=== PATIENT | male | born 1965 | race Caucasian/White ===

== ENCOUNTER → 2016-11-06 | Outpatient (CLI) | payer OTHER ==
[2016-11-06 12:28] LABS: CHLORIDE,CL 103 mmol/L (98-110); SODIUM,NA 142 mmol/L (136-146)
== END ==
LOC: MW.CHFP 11:27
PROVIDERS: ATTEND Physician Assistant
DX: I10 Essential (primary) hypertension (principal); R20.2 Paresthesia of skin; E11.9 Type 2 diabetes mellitus without complications
CPT/HCPCS: 36415; 80053; 80061; 83036; 85025; 85652; 93005

== ENCOUNTER 2021-07-20 16:56 | Emergency (ER) | payer SELFPAY ==
[2021-07-20] MEDS ORDERED: Sodium Chloride 0.9% 2.5 ML Syringe FLUSH PRN (17:04)
[2021-07-20] MEDS ORDERED: Sodium Chloride 0.9% 10 ML Syringe FLUSH PRN (17:04)
[2021-07-20] MEDS ORDERED: Sodium Chloride 0.9% 1,000 ML IV ONE ×2 (17:04→17:49)
[2021-07-20] MEDS: Succinylcholine 200 MG/10 ML MDV IV STA ×2 (17:15→20:58)
[2021-07-20] MEDS ORDERED: Etomidate 2 MG/ML 20 ML SDV IVPUSH ONE (17:22)
[2021-07-20] MEDS ORDERED: propofoL 100 ML IV SCH ×4 (17:30→17:45)
[2021-07-20] MEDS ORDERED: fentaNYL 50 MCG/ML SDV IVPUSH ONE ×2 (17:35→17:49)
[2021-07-20] MEDS ORDERED: fentaNYL 100 MCG/2 ML SDV ONE ×2 (17:35→19:28)
[2021-07-20] MEDS ORDERED: propofoL 100 ML ONE (17:39)
--- NOTE | 2021-07-20 17:45 | EDM.PDOC ---
<DwainekateygradyAlverto A - Last Filed: 07/20/21 18:45> ED HPI GENERAL MEDICAL PROBLEM - General Chief Complaint: General Stated Complaint: EMS ARRIVAL Time Seen by Provider: 07/20/21 17:04 Source of Information: Reports: EMS History Limitations: Reports: Altered Mental Status - History of Present Illness INITIAL COMMENTS - FREE TEXT/NARRATIVE: 56-year-old male past medical history alcohol abuse presents for unresponsive state. History is from EMS as patient is unable to provide history secondary to clinical condition. Someone had called a welfare check on the patient and when police arrived at the patient's apartment he was noted to be lying on the ground unresponsive. EMS was called and did do an EKG which showed a normal sinus rhythm as well as a fingerstick glucose which was in normal limits. Patient was noted to have normal blood pressure and pulse. He was with agonal respirations and pinpoint pupils. 2 mg of Narcan was given IV without any response. Patient brought to the emergency department for further work-up and assessment. - Related Data Allergies Allergy/AdvReac Type Severity Reaction Status Date / Time No Known Allergies Allergy Verified 07/20/21 18:54 Home Meds: Home Meds . [No Known Home Meds] 03/01/15 [History] Past Medical History Other Psychiatric History: Etoh abuse/DT's. ED ROS GENERAL - Review of Systems Review Of Systems: Unable To Obtain Reason Not Obtained: Unresponsive state ED EXAM, GENERAL - Physical Exam Exam: See Below Exam Limited By: Other (Unresponsive state) General Appearance: Other (GCS 6, withdrawals to pain, otherwise non-verbal, does not follow commands, appears chronically ill) Eye Exam: Bilateral Eye: Other (pupils b/l pinpoint) Ears: Normal External Exam Throat/Mouth: No Airway Compromise, Other (dry oropharynx) Head: Atraumatic, Normocephalic Neck: Normal Inspection Respiratory/Chest: Other (agonal breathing, otherwise lungs CTAB) Cardiovascular: Other (difficult to palpate radial pulses b/l; palpable femoral pulses) GI/Abdominal: Soft. No: Guarding Extremities: Normal Inspection Neurological: Other (GCS6) Skin Exam: Dry, Intact, Cool ED GENERAL MEDICAL PROCEDURES - Endotracheal Intubation Time of Intubation: 17:00 ET Intubation Indication: Airway Protection Preparation: Suction, Balloon Tested, BVM Set Up, Difficult Airway Equip Pre-Oxygenation: Assisted with BVM Anesthesia Meds: Etomidate, Succinylcholine Placement: Orotracheal Cords Visualized: Yes ETT Size In mm: 7.5 Number of Attempts: 2 Confirmed By: CO2 Indicator, Bilateral Breath Sounds, Chest Xray Tube Secured By: By RT Endotracheal Intubation Comment: Intubation was complicated by very dry oropharynx. #1 Interpretation EKG Date: 07/20/21 Time: 16:50 Rhythm: Other (junctional rhythm) [place]: Normal P-Wave: Absent QRS: Normal ST-T: Normal QT: Prolonged (517) EKG Interpretation Comments: no acute ischemic changes Course - Re-Assessments/Exams Free Text/Narrative Re-Assessment/Exam: 07/20/21 17:45 Patient presents unresponsive. He does have history of alcohol abuse and alcohol withdrawal seizures. Patient is intubated for airway protection. Propofol drip has been ordered. We'll follow up extensive labs and imaging. 07/20/21 18:23 I did get a phone call from the patient's Ms. Anastasiia Wallace ([phone]); she notes that she has not seen the patient in several days. She believes that the patient has been sick for the last couple of days and notes that he was taking time off from work. She states the patient's employer has been bringing him food for the past few days. She believes that the last time that he was seen was yesterday when patient employer brought him food. The patient's employer could not get a hold of him today prompting him to call police for a welfare check leading to him being brought to the hospital this afternoon. The patient's would like to be called with updates. She has been informed the patient is very ill and currently intubated. 07/20/21 18:36 OG tube was placed with aspiration of roughly 500cc of dark red blood. Patient's ABG show severe metabolic acidosis; sodium bicarbonate push and drip ordered. Ceftriaxone, octreotide, protonix ordered. 2-L IVFB ordered. Type and screen ordered. 07/20/21 18:45 I have called [facility] and [facility] which are both on full- house diversion. I am on hold with [facility]. Departure - Departure Disposition: DC/Tfer to [facility] 02 Clinical Impression: Shock, GI bleed, Renal failure - Discharge Information Referrals: PCP,None [Primary Care Provider] - Forms: ED Department Discharge <EverettEric C - Last Filed: 07/20/21 22:21> ED HPI GENERAL MEDICAL PROBLEM - History of Present Illness INITIAL COMMENTS - FREE TEXT/NARRATIVE: Patient was signed out to me by Dr. Banegas pending further work-up and final disposition at 7pm. I promptly performed a detailed physical examination and my examination was done after ED treatments were initiated by the signout provider. Patient has been under the care of previous provider up until this point. In short this is a 56-year-old man with a past medical history of alcohol use disorder and prior history of alcohol withdrawal seizures who was found agonal he breathing at his home after a welfare check. Upon arrival in the emergency department the patient was intubated secondary to decreased GCS and for airway protection. When OG tube was placed approximately 500 cc of coffee-ground emesis/bloody emesis was removed. It was difficult for them to obtain any kind of pulse oximetry so they obtained an ABG which did reveal metabolic acidosis with bicarbonate of 5 and a pH of 6.98. PaO2 at that time was 472 therefore oxygen was weaned down. EXAMINATION OF ORGAN SYSTEMS/BODY AREAS: Constitutional: Hypotensive, bradycardiac. Pulse oximetry cannot be obtained General: Middle-aged man who appears pale and is intubated and sedated. Eyes: No scleral icterus or conjunctival erythema pale conjunctiva. Pupils were 2mm bilaterally. ENMT: Dry mucous membranes with OG and endotracheal tube in place. Cardiovascular: Bradycardic no gallops, murmurs, or rubs. Central pulses could be palpated. They were strong Respiratory: Lungs clear to auscultation bilaterally. No wheezes, rales, or rhonchi. Ventilated. Gastrointestinal: Soft, non-tender, non-distended. Normoactive bowel sounds Genitourinary: Ceron catheter in place. No urinary output musculoskeletal: Normal range of motion. Skin: The skin is pale with peripheral cyanosis Neurological: Difficult to assess secondary to intubation and sedation The patient has already been provided 2 L of normal saline, 80 mg of IV Protonix, and started on a sodium bicarb drip. The patient's MAP is less than 65. Therefore at this time given shock will place a central line emergently. Given the amount of bleeding from OG tube I did order 3 units of PRBCs, 1 of FFP , and provided the patient with 1 g of TXA. In addition at this time it is uncertain if the patient has a gastritis versus esophageal varices therefore we will start the patient on an octreotide drip. Consent was implied emergent. Central Line Procedure The risks and benefits of the procedure were explained. Consent was implied emergent. The indication for central line placement was hypotension/need for vasopressors. The patient was monitored during the entire procedure. Time out was performed. The patient's left groin was prepped and draped in a sterile fashion. Lidocaine was used to anesthetize the area. A needle was entered into the femoral vein under landmark palpation with return of non-pulsatile flow. Guidewire was placed and triple lumen catheter was placed via Seldinger techni que. Guidewire was removed. All 3 lines easily withdrew blood and were flushed with sterile saline. A Biopatch was placed and the line was secured. Patient tolerated procedure well. No complications. After placement of central venous catheter I did order norepinephrine to start to keep maps above 65. Laboratory: CBC reveals a macrocytic anemia with a hemoglobin of 4.0 and hematocrit of 13.9. There is a leukocytosis with a white blood cell count of 16.2 with 15.7 segmented neutrophils. INR is mildly elevated at 1.62 and APTT is 37.9. CMP reveals anion gap metabolic acidosis with a bicarbonate of 6.4, hyponatremia at 130, hypochloremia at 96, hyperkalemia without hemolysis at 7.7. Acute renal failure with a BUN of 151 and a creatinine of 9.3. Hyperglycemia at 137. There is a transaminitis with an AST of 262, ALT of 204 and alkaline phosphatase of 415. Hypoalbuminemia at 1.8. TSH is 5.61. Troponin is elevated 0.447. Urinalysis was negative. UDS and serum drug screen were negative. Covid and influenza are negative. Given the acute renal failure and hyperkalemia I did obtain a repeat EKG. There was no evidence of any peaked T waves however there was QRS widening. Therefore at this time we will provide the patient with calcium gluconate, insulin, dextrose, albuterol, and Kayexalate. We will reevaluate after this treatment. The patient is already on bicarbonate drip. In addition Lasix is not indicated at this time given the patient has had 0 urinary output since being in the emergency department. We will start the patient on lactated Ringer's at 150 cc/h for maintenance fluids. In addition given the mild elevation in INR we did provide the patient with vitamin K 10 mg IV. At this time I did contact the patient's and discussed CODE STATUS with her and an update on the patient. At this time the patient is full code. I did discuss that I would update her on where the patient will be transferred to. We contacted [facility] in [place], [facility] in [place], , [facility], [facility], [facility], [facility] all of which do not have any capability. Therefore at this time we did speak to [facility] and I spoke with Dr. Peck who accepted the patient for transfer. At the time of transfer the patient's vital signs had improved and the patient no longer required any further norepinephrine dosing. The patient's map was greater than 65, and pulse oximetry with good waveform was 93 to 95% on FiO2 of 40%. Given the hyperkalemia we did repeat an EKG which continued to show a widened QRS however there was no longer bradycardia. Therefore we provided an additional dose of insulin and glucose, albuterol, and calcium gluconate. We did obtain repeat labs prior to discharge and transfer with a hemoglobin showing increased to 6.3 after 2 units and a potassium that is decreased down to 7.0. DISPOSITION: The patient was transferred to [facility] in critical condition CONDITION: Critical PROCEDURES: Cardiac monitoring interpretation, pulse oximetry interpretation, central line placement FINAL IMPRESSION(S)/DIAGNOSES: 1. Acute hemorrhagic versus septic shock 2. Acute anion gap metabolic acidosis likely secondary to #1 3. Acute renal failure likely secondary to #1 4. Acute elevated troponin likely secondary to type II demand ischemia secondary to #1 and #3 5. Acute GI bleed likely secondary to upper GI bleed versus esophageal variceal bleeding Critical Care Procedure Note Authorized and performed by: Eric Floyd M.D. Critical Care Time: 180 minutes Due to a high probability of clinically significant, life threatening deterioration, the patient required my highest level of preparedness to intervene emergently and I personally spent this critical care time directly and personally managing the patient. This critical care time included obtaining a history, examining the patient, pulse oximetry; ordering and review of studies; arranging urgent treatment with development of a management plan; evaluation of a patients reponse to treatment; frequent assessment; and discussions with other providers. This critical care time was performed to assess and manage the high probability of imminent, life threatening deterioration that could result in multiorgan failure. It was exclusive of separate billable procedures and treating other patients. Please see MDM section and rest of the note for further information on patient assessment and treatment. Please see MDM section and rest of the note for further information on patient assessment and treatment. Eric Floyd M.D. Course - Vital Signs Last Recorded V/S: Last Vital Signs Temp 36.2 C 07/20/21 18:49 Pulse 61 07/20/21 18:49 Resp 26 H 07/20/21 18:49 BP 98/47 L 07/20/21 18:49 Pulse Ox 81 L 07/20/21 18:49 - Orders/Labs/Meds Orders: Active Orders 24 hr Category Date Time Status Cardiac Monitoring [RC] . DIRECTED Care 07/20/21 17:04 Active Insert Ceron Catheter [Insert Urinary Catheter] [OM.PC] Care 07/20/21 17:45 Ordered Q24H RASS Sedation Scale [RC] ASDIRECTED Care 07/20/21 17:33 Active RASS Sedation Scale [RC] ASDIRECTED Care 07/20/21 17:37 Active RT Aerosol Therapy [RC] ASDIRECTED Care 07/20/21 20:01 Active RT Aerosol Therapy [RC] ASDIRECTED Care 07/20/21 21:47 Active Urinary Catheter Assessment [RC] ASDIRECTED Care 07/20/21 17:31 Active Ventilator Assessment, ED [RT Ventilator ED, Adult] [RC Care 07/20/21 17:15 Active ] ASDIRECTED Chest 1V Frontal [CR] Stat Exams 07/20/21 22:06 Ordered CULTURE BLOOD [BC] Stat Lab 07/20/21 18:38 Results CULTURE BLOOD [BC] Stat Lab 07/20/21 18:50 Results FRESH FROZEN PLASMA [BBK] Stat Lab 07/20/21 18:55 Results RED BLOOD CELLS LP [BBK] Stat Lab 07/20/21 18:55 Results REFLEX LACTIC ACID YES OR NO [CHEM] Routine Lab 07/20/21 19:55 Received TYPE AND SCREEN [BBK] Stat Lab 07/20/21 18:55 Results VANCOMYCIN TROUGH [CHEM] Timed Lab 07/21/21 21:00 Ordered Dextrose 50% in Water Med 07/20/21 20:00 Active 50 ml IV ASDIRECTED PRN Dextrose 50% in Water Med 07/20/21 20:01 Active 50 ml IVPUSH ASDIRECTED PRN Dextrose 50% in Water Med 07/20/21 21:55 Active 50 ml IVPUSH ASDIRECTED PRN Glucagon,Human Recombinant [GlucaGen] Med 07/20/21 20:01 Active 1 mg IM ASDIRECTED PRN Glucagon,Human Recombinant [GlucaGen] Med 07/20/21 21:55 Active 1 mg IM ASDIRECTED PRN Lactated Ringers [Ringers, Lactated] 1,000 ml Med 07/20/21 21:18 Active IV STAT Norepinephrine Bit/0.9 % NaCl [Norepinephr-0.9% NaCl 4 Med 07/20/21 20:00 Active mg/250] 4 mg in 250 ml IV TITRATE Octreotide [SandoSTATIN] 500 mcg Med 07/20/21 19:15 Active Sodium Chloride 0.9% [Normal Saline] 495 ml IV Q10H Pharmacy to Dose - Vancomycin Med 07/20/21 20:04 Pending 1 dose .XX ONETIME ONE Sodium Bicarbonate [Sodium Bicarbonate 8.4%] 150 meq Med 07/20/21 19:30 Active Dextrose 5% in Water 1,000 ml IV ONETIME Sodium Chloride 0.9% [Saline Flush] Med 07/20/21 17:04 Active 10 ml FLUSH ASDIRECTED PRN Sodium Chloride 0.9% [Saline Flush] Med 07/20/21 17:04 Active 2.5 ml FLUSH ASDIRECTED PRN VANCOmycin 2 GM/400 ML 2 gm Med 07/20/21 21:00 Active Premix Bag 1 bag IV STAT fentaNYL/Normal Saline [fentaNYL 2500 MCG in NS 250 ML Med 07/20/21 19:10 Active (10 MCG/ML)] 2,500 mcg Premix Bag 1 bag IV TITRATE propofoL [Diprivan 100 ML] 100 ml Med 07/20/21 17:45 Active IV TITRATE Blood Culture x2 Reflex Set [OM.PC] Stat Oth 07/20/21 17:21 Ordered Desired Level of Sedation (RASS) [AST] Click to Edit [facility] 07/20/21 17:33 Ordered Desired Level of Sedation (RASS) [AST] Click to Edit [facility] 07/20/21 17:37 Ordered Saline Lock Insert [OM.PC] [facility] 07/20/21 17:04 Ordered Transfuse Fresh Frozen Plasma [COMM] Stat [facility] 07/20/21 19:53 Ordered Transfuse Red Blood Cells [COMM] Stat [facility] 07/20/21 19:12 Ordered Transfuse Red Blood Cells [COMM] Stat [facility] 07/20/21 19:57 Ordered Medication Orders Dextrose/Water (50% Dextrose In Water 50 Ml Syringe) 50 ml IV ASDIRECTED PRN PRN Reason: Hypoglycemia Dextrose/Water (50% Dextrose In Water 50 Ml Syringe) 50 ml IVPUSH ASDIRECTED PRN PRN Reason: Hypoglycemia Dextrose/Water (50% Dextrose In Water 50 Ml Syringe) 50 ml IVPUSH ASDIRECTED PRN PRN Reason: Hypoglycemia Glucagon (Glucagon,Human Recombinant 1 Mg Vial) 1 mg IM ASDIRECTED PRN PRN Reason: Hypoglycemia Glucagon (Glucagon,Human Recombinant 1 Mg Vial) 1 mg IM ASDIRECTED PRN PRN Reason: Hypoglycemia Propofol (Diprivan 100 Ml) 100 mls @ 2.4 mls/hr IV TITRATE ARTUR; Protocol Last Titration: 07/20/21 17:50 Dose: 20 mcg/kg/min, 9.6 mls/hr Documented by: Admin: 07/20/21 17:45 Dose: 5 mcg/kg/min, 2.4 mls/hr Documented by: EVERT Octreotide Acetate 500 mcg/ (Sodium Chloride) 500 mls @ 50 mls/hr IV Q10H ARTUR Last Admin: 07/20/21 21:39 Dose: 50 mcg/hr, 50 mls/hr Documented by: MARICHUYUALJim Fentanyl Citrate 2,500 mcg/ (Premix) 250 mls @ 2.5 mls/hr IV TITRATE PRN; Protocol PRN Reason: Other Sodium Bicarbonate 150 meq/ (Dextrose/Water) 1,150 mls @ 200 mls/hr IV ONETIME ONE Stop: 07/21/21 00:21 Last Admin: 07/20/21 20:20 Dose: 200 mls/hr Documented by: KINZA Norepinephrine Bitartrate (Norepinephr-0.9% Nacl 4 Mg/250) 4 mg in 250 mls @ 7.5 mls/hr IV TITRATE ARTUR; Protocol Vancomycin HCl 2 gm/ Premix 400 mls @ 200 mls/hr IV STAT ONE Stop: 07/20/21 22:59 Lactated Ringer's (Ringers, Lactated) 1,000 mls @ 150 mls/hr IV STAT STA Stop: 07/21/21 03:57 Last Admin: 07/20/21 22:05 Dose: 150 mls/hr Documented by: KINZA Sodium Chloride (Sodium Chloride 0.9% 10 Ml Syringe) 10 ml FLUSH ASDIRECTED PRN PRN Reason: Keep Vein Open Last Admin: 07/20/21 19:03 Dose: 10 ml Documented by: KINZA Sodium Chloride (Sodium Chloride 0.9% 2.5 Ml Syringe) 2.5 ml FLUSH ASDIRECTED PRN PRN Reason: Keep Vein Open Last Admin: 07/20/21 19:03 Dose: 2.5 ml Documented by: KINZA Vancomycin HCl (Pharmacy To Dose - Vancomycin) 1 dose .XX ONETIME ONE Stop: 07/20/21 20:05 Labs: Laboratory Tests 07/20/21 07/20/21 07/20/21 Range/Units 17:33 17:33 18:05 WBC (4.0-11.0) K/uL RBC (4.50-5.90) M/uL Hgb (13.0-17.0) g/dL Hct (38.0-50.0) % MCV (80.0-98.0) fL MCH (27.0-32.0) pg MCHC (31.0-37.0) g/dL RDW Std Deviation (28.0-62.0) fl RDW Coeff of Marvin (11.0-15.0) % Plt Count (150-400) K/uL MPV (7.40-12.00) fL Add Manual Diff Neutrophils % (Manual) (48.0-80.0) % Lymphocytes % (Manual) (16.0-40.0) % Monocytes % (Manual) (0.0-15.0) % Nucleated RBC % /100WBC Absolute Seg Neuts (1.4-5.7) Lymphocytes # (Manual) (0.6-2.4) Monocytes # (Manual) (0.0-0.8) Nucleated RBCs % Nucleated RBCs # K/uL INR APTT (18.6-31.3) SEC ABG pH (7.35-7.45) ABG pCO2 (35-45) mmHG ABG pO2 (80-105) mmHG ABG HCO3 (22-26) mEq/L ABG Total CO2 (23-27) mmol/L ABG Base Excess (-2.0-3.0) Sodium (136-148) mmol/L Potassium (3.5-5.1) mmol/L Chloride (98-107) mmol/L Carbon Dioxide (21.0-32.0) mmol/L BUN (7.0-18.0) mg/dL Creatinine (0.8-1.3) mg/dL Est Cr Clr Drug Dosing Estimated GFR (MDRD) ml/min Glucose (74-106) mg/dL POC Glucose (70-99) mg/dL Lactic Acid (0.4-2.0) mmol/L Calcium (8.5-10.1) mg/dL Magnesium (1.8-2.4) mg/dL Total Bilirubin (0.2-1.0) mg/dL AST (15-37) IU/L ALT (14-63) IU/L Alkaline Phosphatase (46-116) U/L Troponin I (0.000-0.056) ng/mL Total Protein (6.4-8.2) g/dL Albumin (3.4-5.0) g/dL Globulin (2.6-4.0) g/dL Albumin/Globulin Ratio (0.9-1.6) TSH, Ultra Sensitive (0.36-3.74) uIU/mL Urine Color YELLOW Urine Appearance CLEAR Urine pH 5.5 (5.0-8.0) Ur Specific [place] 1.025 (1.001-1.035) Urine Protein 30 H (NEGATIVE) mg/dL Urine Glucose (UA) NEGATIVE (NEGATIVE) mg/dL Urine Ketones NEGATIVE (NEGATIVE) mg/dL Urine Occult Blood NEGATIVE (NEGATIVE) Urine Nitrite NEGATIVE (NEGATIVE) Urine Bilirubin NEGATIVE (NEGATIVE) Urine Urobilinogen 0.2 (<2.0) EU/dL Ur Leukocyte Esterase NEGATIVE (NEGATIVE) Urine RBC 0-2 (0-2/HPF) Urine WBC 0-2 (0-5/HPF) Ur Epithelial Cells FEW (NONE-FEW) Urine Bacteria RARE (NEGATIVE) Salicylates (0-20) mg/dL Urine Opiates Screen NEGATIVE (NEGATIVE) Ur Oxycodone Screen NEGATIVE (NEGATIVE) Urine Methadone Screen NEGATIVE (NEGATIVE) Acetaminophen ug/mL Ur Barbiturates Screen NEGATIVE (NEGATIVE) Ur Phencyclidine Scrn NEGATIVE (NEGATIVE) Ur Amphetamine Screen NEGATIVE (NEGATIVE) U Methamphetamines Scrn NEGATIVE (NEGATIVE) U Benzodiazepines Scrn NEGATIVE (NEGATIVE) U Cocaine Metab Screen NEGATIVE (NEGATIVE) U Marijuana (THC) Screen NEGATIVE (NEGATIVE) Ethyl Alcohol mg/dL Influenza Type A RNA NEGATIVE (NEGATIVE) Influenza Type B RNA NEGATIVE (NEGATIVE) SARS-CoV-2 RNA (BLANCA) NEGATIVE (NEGATIVE) Blood Type Antibody Screen Crossmatch 07/20/21 07/20/21 07/20/21 Range/Units 18:11 18:38 18:38 WBC 16.70 H (4.0-11.0) K/uL RBC 1.38 L (4.50-5.90) M/uL Hgb 4.0 L* (13.0-17.0) g/dL Hct 13.9 L (38.0-50.0) % MCV 100.7 H (80.0-98.0) fL MCH 29.0 (27.0-32.0) pg MCHC 28.8 L (31.0-37.0) g/dL RDW Std Deviation 69.6 H (28.0-62.0) fl RDW Coeff of Marvin 20 H (11.0-15.0) % Plt Count 229 (150-400) K/uL MPV 11.00 (7.40-12.00) fL Add Manual Diff YES Neutrophils % (Manual) 94 H (48.0-80.0) % Lymphocytes % (Manual) 5 L (16.0-40.0) % Monocytes % (Manual) 1 (0.0-15.0) % Nucleated RBC % 6.4 /100WBC Absolute Seg Neuts 15.7 H (1.4-5.7) Lymphocytes # (Manual) 0.8 (0.6-2.4) Monocytes # (Manual) 0.2 (0.0-0.8) Nucleated RBCs 10 % Nucleated RBCs # 1 K/uL INR APTT (18.6-31.3) SEC ABG pH 6.98 L* (7.35-7.45) ABG pCO2 19 L (35-45) mmHG ABG pO2 472 H (80-105) mmHG ABG HCO3 5 L (22-26) mEq/L ABG Total CO2 6 L (23-27) mmol/L ABG Base Excess -24.5 L (-2.0-3.0) Sodium (136-148) mmol/L Potassium (3.5-5.1) mmol/L Chloride (98-107) mmol/L Carbon Dioxide (21.0-32.0) mmol/L BUN (7.0-18.0) mg/dL Creatinine (0.8-1.3) mg/dL Est Cr Clr Drug Dosing Estimated GFR (MDRD) ml/min Glucose (74-106) mg/dL POC Glucose (70-99) mg/dL Lactic Acid 13.4 H* (0.4-2.0) mmol/L Calcium (8.5-10.1) mg/dL Magnesium (1.8-2.4) mg/dL Total Bilirubin (0.2-1.0) mg/dL AST (15-37) IU/L ALT (14-63) IU/L Alkaline Phosphatase (46-116) U/L Troponin I (0.000-0.056) ng/mL Total Protein (6.4-8.2) g/dL Albumin (3.4-5.0) g/dL Globulin (2.6-4.0) g/dL Albumin/Globulin Ratio (0.9-1.6) TSH, Ultra Sensitive (0.36-3.74) uIU/mL Urine Color Urine Appearance Urine pH (5.0-8.0) Ur Specific [place] (1.001-1.035) Urine Protein (NEGATIVE) mg/dL Urine Glucose (UA) (NEGATIVE) mg/dL Urine Ketones (NEGATIVE) mg/dL Urine Occult Blood (NEGATIVE) Urine Nitrite (NEGATIVE) Urine Bilirubin (NEGATIVE) Urine Urobilinogen (<2.0) EU/dL Ur Leukocyte Esterase (NEGATIVE) Urine RBC (0-2/HPF) Urine WBC (0-5/HPF) Ur Epithelial Cells (NONE-FEW) Urine Bacteria (NEGATIVE) Salicylates (0-20) mg/dL Urine Opiates Screen (NEGATIVE) Ur Oxycodone Screen (NEGATIVE) Urine Methadone Screen (NEGATIVE) Acetaminophen ug/mL Ur Barbiturates Screen (NEGATIVE) Ur Phencyclidine Scrn (NEGATIVE) Ur Amphetamine Screen (NEGATIVE) U Methamphetamines Scrn (NEGATIVE) U Benzodiazepines Scrn (NEGATIVE) U Cocaine Metab Screen (NEGATIVE) U Marijuana (THC) Screen (NEGATIVE) Ethyl Alcohol mg/dL Influenza Type A RNA (NEGATIVE) Influenza Type B RNA (NEGATIVE) SARS-CoV-2 RNA (BLANCA) (NEGATIVE) Blood Type Antibody Screen Crossmatch 07/20/21 07/20/21 07/20/21 Range/Units 18:38 18:50 18:55 WBC (4.0-11.0) K/uL RBC (4.50-5.90) M/uL Hgb (13.0-17.0) g/dL Hct (38.0-50.0) % MCV (80.0-98.0) fL MCH (27.0-32.0) pg MCHC (31.0-37.0) g/dL RDW Std Deviation (28.0-62.0) fl RDW Coeff of Marvin (11.0-15.0) % Plt Count (150-400) K/uL MPV (7.40-12.00) fL Add Manual Diff Neutrophils % (Manual) (48.0-80.0) % Lymphocytes % (Manual) (16.0-40.0) % Monocytes % (Manual) (0.0-15.0) % Nucleated RBC % /100WBC Absolute Seg Neuts (1.4-5.7) Lymphocytes # (Manual) (0.6-2.4) Monocytes # (Manual) (0.0-0.8) Nucleated RBCs % Nucleated RBCs # K/uL INR 1.62 APTT 37.9 H (18.6-31.3) SEC ABG pH (7.35-7.45) ABG pCO2 (35-45) mmHG ABG pO2 (80-105) mmHG ABG HCO3 (22-26) mEq/L ABG Total CO2 (23-27) mmol/L ABG Base Excess (-2.0-3.0) Sodium 130 L (136-148) mmol/L Potassium 7.7 H* (3.5-5.1) mmol/L Chloride 96 L (98-107) mmol/L Carbon Dioxide 6.4 L (21.0-32.0) mmol/L BUN 151 H (7.0-18.0) mg/dL Creatinine 9.3 H (0.8-1.3) mg/dL Est Cr Clr Drug Dosing TNP Estimated GFR (MDRD) 5.9 ml/min Glucose 137 H (74-106) mg/dL POC Glucose (70-99) mg/dL Lactic Acid (0.4-2.0) mmol/L Calcium 8.6 (8.5-10.1) mg/dL Magnesium 3.0 H (1.8-2.4) mg/dL Total Bilirubin 1.0 (0.2-1.0) mg/dL AST 262 H (15-37) IU/L ALT 204 H (14-63) IU/L Alkaline Phosphatase 415 H (46-116) U/L Troponin I 0.447 H* (0.000-0.056) ng/mL Total Protein 6.4 (6.4-8.2) g/dL Albumin 1.8 L (3.4-5.0) g/dL Globulin 4.6 H (2.6-4.0) g/dL Albumin/Globulin Ratio 0.4 L (0.9-1.6) TSH, Ultra Sensitive 5.61 H (0.36-3.74) uIU/mL Urine Color Urine Appearance Urine pH (5.0-8.0) Ur Specific [place] (1.001-1.035) Urine Protein (NEGATIVE) mg/dL Urine Glucose (UA) (NEGATIVE) mg/dL Urine Ketones (NEGATIVE) mg/dL Urine Occult Blood (NEGATIVE) Urine Nitrite (NEGATIVE) Urine Bilirubin (NEGATIVE) Urine Urobilinogen (<2.0) EU/dL Ur Leukocyte Esterase (NEGATIVE) Urine RBC (0-2/HPF) Urine WBC (0-5/HPF) Ur Epithelial Cells (NONE-FEW) Urine Bacteria (NEGATIVE) Salicylates 2.6 (0-20) mg/dL Urine Opiates Screen (NEGATIVE) Ur Oxycodone Screen (NEGATIVE) Urine Methadone Screen (NEGATIVE) Acetaminophen <2.0 ug/mL Ur Barbiturates Screen (NEGATIVE) Ur Phencyclidine Scrn (NEGATIVE) Ur Amphetamine Screen (NEGATIVE) U Methamphetamines Scrn (NEGATIVE) U Benzodiazepines Scrn (NEGATIVE) U Cocaine Metab Screen (NEGATIVE) U Marijuana (THC) Screen (NEGATIVE) Ethyl Alcohol < 3.0 mg/dL Influenza Type A RNA (NEGATIVE) Influenza Type B RNA (NEGATIVE) SARS-CoV-2 RNA (BLANCA) (NEGATIVE) Blood Type O POSITIVE Antibody Screen NEGATIVE Crossmatch See Detail 07/20/21 07/20/21 07/20/21 Range/Units 20:09 21:18 21:22 WBC (4.0-11.0) K/uL RBC (4.50-5.90) M/uL Hgb (13.0-17.0) g/dL Hct (38.0-50.0) % MCV (80.0-98.0) fL MCH (27.0-32.0) pg MCHC (31.0-37.0) g/dL RDW Std Deviation (28.0-62.0) fl RDW Coeff of Marvin (11.0-15.0) % Plt Count (150-400) K/uL MPV (7.40-12.00) fL Add Manual Diff Neutrophils % (Manual) (48.0-80.0) % Lymphocytes % (Manual) (16.0-40.0) % Monocytes % (Manual) (0.0-15.0) % Nucleated RBC % /100WBC Absolute Seg Neuts (1.4-5.7) Lymphocytes # (Manual) (0.6-2.4) Monocytes # (Manual) (0.0-0.8) Nucleated RBCs % Nucleated RBCs # K/uL INR APTT (18.6-31.3) SEC ABG pH 7.00 L* (7.35-7.45) ABG pCO2 25 L (35-45) mmHG ABG pO2 125 H (80-105) mmHG ABG HCO3 6 L (22-26) mEq/L ABG Total CO2 6.5 L (23-27) mmol/L ABG Base Excess -23.3 L (-2.0-3.0) Sodium (136-148) mmol/L Potassium 7.0 H (3.5-5.1) mmol/L Chloride (98-107) mmol/L Carbon Dioxide (21.0-32.0) mmol/L BUN (7.0-18.0) mg/dL Creatinine (0.8-1.3) mg/dL Est Cr Clr Drug Dosing Estimated GFR (MDRD) ml/min Glucose (74-106) mg/dL POC Glucose 124 H (70-99) mg/dL Lactic Acid (0.4-2.0) mmol/L Calcium (8.5-10.1) mg/dL Magnesium (1.8-2.4) mg/dL Total Bilirubin (0.2-1.0) mg/dL AST (15-37) IU/L ALT (14-63) IU/L Alkaline Phosphatase (46-116) U/L Troponin I (0.000-0.056) ng/mL Total Protein (6.4-8.2) g/dL Albumin (3.4-5.0) g/dL Globulin (2.6-4.0) g/dL Albumin/Globulin Ratio (0.9-1.6) TSH, Ultra Sensitive (0.36-3.74) uIU/mL Urine Color Urine Appearance Urine pH (5.0-8.0) Ur Specific [place] (1.001-1.035) Urine Protein (NEGATIVE) mg/dL Urine Glucose (UA) (NEGATIVE) mg/dL Urine Ketones (NEGATIVE) mg/dL Urine Occult Blood (NEGATIVE) Urine Nitrite (NEGATIVE) Urine Bilirubin (NEGATIVE) Urine Urobilinogen (<2.0) EU/dL Ur Leukocyte Esterase (NEGATIVE) Urine RBC (0-2/HPF) Urine WBC (0-5/HPF) Ur Epithelial Cells (NONE-FEW) Urine Bacteria (NEGATIVE) Salicylates (0-20) mg/dL Urine Opiates Screen (NEGATIVE) Ur Oxycodone Screen (NEGATIVE) Urine Methadone Screen (NEGATIVE) Acetaminophen ug/mL Ur Barbiturates Screen (NEGATIVE) Ur Phencyclidine Scrn (NEGATIVE) Ur Amphetamine Screen (NEGATIVE) U Methamphetamines Scrn (NEGATIVE) U Benzodiazepines Scrn (NEGATIVE) U Cocaine Metab Screen (NEGATIVE) U Marijuana (THC) Screen (NEGATIVE) Ethyl Alcohol mg/dL Influenza Type A RNA (NEGATIVE) Influenza Type B RNA (NEGATIVE) SARS-CoV-2 RNA (BLANCA) (NEGATIVE) Blood Type Antibody Screen Crossmatch 07/20/21 Range/Units 21:22 WBC (4.0-11.0) K/uL RBC (4.50-5.90) M/uL Hgb 6.3 L (13.0-17.0) g/dL Hct 20.5 L (38.0-50.0) % MCV (80.0-98.0) fL MCH (27.0-32.0) pg MCHC (31.0-37.0) g/dL RDW Std Deviation (28.0-62.0) fl RDW Coeff of Marvin (11.0-15.0) % Plt Count (150-400) K/uL MPV (7.40-12.00) fL Add Manual Diff Neutrophils % (Manual) (48.0-80.0) % Lymphocytes % (Manual) (16.0-40.0) % Monocytes % (Manual) (0.0-15.0) % Nucleated RBC % /100WBC Absolute Seg Neuts (1.4-5.7) Lymphocytes # (Manual) (0.6-2.4) Monocytes # (Manual) (0.0-0.8) Nucleated RBCs % Nucleated RBCs # K/uL INR APTT (18.6-31.3) SEC ABG pH (7.35-7.45) ABG pCO2 (35-45) mmHG ABG pO2 (80-105) mmHG ABG HCO3 (22-26) mEq/L ABG Total CO2 (23-27) mmol/L ABG Base Excess (-2.0-3.0) Sodium (136-148) mmol/L Potassium (3.5-5.1) mmol/L Chloride (98-107) mmol/L Carbon Dioxide (21.0-32.0) mmol/L BUN (7.0-18.0) mg/dL Creatinine (0.8-1.3) mg/dL Est Cr Clr Drug Dosing Estimated GFR (MDRD) ml/min Glucose (74-106) mg/dL POC Glucose (70-99) mg/dL Lactic Acid (0.4-2.0) mmol/L Calcium (8.5-10.1) mg/dL Magnesium (1.8-2.4) mg/dL Total Bilirubin (0.2-1.0) mg/dL AST (15-37) IU/L ALT (14-63) IU/L Alkaline Phosphatase (46-116) U/L Troponin I (0.000-0.056) ng/mL Total Protein (6.4-8.2) g/dL Albumin (3.4-5.0) g/dL Globulin (2.6-4.0) g/dL Albumin/Globulin Ratio (0.9-1.6) TSH, Ultra Sensitive (0.36-3.74) uIU/mL Urine Color Urine Appearance Urine pH (5.0-8.0) Ur Specific [place] (1.001-1.035) Urine Protein (NEGATIVE) mg/dL Urine Glucose (UA) (NEGATIVE) mg/dL Urine Ketones (NEGATIVE) mg/dL Urine Occult Blood (NEGATIVE) Urine Nitrite (NEGATIVE) Urine Bilirubin (NEGATIVE) Urine Urobilinogen (<2.0) EU/dL Ur Leukocyte Esterase (NEGATIVE) Urine RBC (0-2/HPF) Urine WBC (0-5/HPF) Ur Epithelial Cells (NONE-FEW) Urine Bacteria (NEGATIVE) Salicylates (0-20) mg/dL Urine Opiates Screen (NEGATIVE) Ur Oxycodone Screen (NEGATIVE) Urine Methadone Screen (NEGATIVE) Acetaminophen ug/mL Ur Barbiturates Screen (NEGATIVE) Ur Phencyclidine Scrn (NEGATIVE) Ur Amphetamine Screen (NEGATIVE) U Methamphetamines Scrn (NEGATIVE) U Benzodiazepines Scrn (NEGATIVE) U Cocaine Metab Screen (NEGATIVE) U Marijuana (THC) Screen (NEGATIVE) Ethyl Alcohol mg/dL Influenza Type A RNA (NEGATIVE) Influenza Type B RNA (NEGATIVE) SARS-CoV-2 RNA (BLANCA) (NEGATIVE) Blood Type Antibody Screen Crossmatch Meds: Medications Generic Name Dose Route Start Last Admin Trade Name Freq PRN Reason Stop Dose Admin Dextrose/Water 50 ml 07/20/21 20:00 50% Dextrose In Water 50 Ml Syringe IV ASDIRECTED PRN Hypoglycemia Dextrose/Water 50 ml 07/20/21 20:01 50% Dextrose In Water 50 Ml Syringe IVPUSH ASDIRECTED PRN Hypoglycemia Dextrose/Water 50 ml 07/20/21 21:55 50% Dextrose In Water 50 Ml Syringe IVPUSH ASDIRECTED PRN Hypoglycemia Glucagon 1 mg 07/20/21 20:01 Glucagon,Human Recombinant 1 Mg Vial IM ASDIRECTED PRN Hypoglycemia Glucagon 1 mg 07/20/21 21:55 Glucagon,Human Recombinant 1 Mg Vial IM ASDIRECTED PRN Hypoglycemia Propofol 100 mls @ 2.4 mls/hr 07/20/21 17:45 07/20/21 17:50 Diprivan 100 Ml IV 20 mcg/kg/min TITRATE ARTUR 9.6 mls/hr Titration Protocol 5 MCG/KG/MIN Octreotide Acetate 500 mcg/ 500 mls @ 50 mls/hr 07/20/21 19:15 07/20/21 21:39 Sodium Chloride IV 50 mcg/hr Q10H ARTUR 50 mls/hr Administration 50 MCG/HR Fentanyl Citrate 2,500 mcg/ 250 mls @ 2.5 mls/hr 07/20/21 19:10 Premix IV TITRATE PRN Other Protocol 25 MCG/HR Sodium Bicarbonate 150 meq/ 1,150 mls @ 200 mls/hr 07/20/21 19:30 07/20/21 20:20 Dextrose/Water IV 07/21/21 00:21 200 mls/hr ONETIME ONE Administration Norepinephrine Bitartrate 4 mg in 250 mls @ 7.5 mls/hr 07/20/21 20:00 Norepinephr-0.9% Nacl 4 Mg/250 IV TITRATE ARTUR Protocol 2 MCG/MIN Vancomycin HCl 2 gm/ Premix 400 mls @ 200 mls/hr 07/20/21 21:00 IV 07/20/21 22:59 STAT ONE Lactated Ringer's 1,000 mls @ 150 mls/hr 07/20/21 21:18 07/20/21 22:05 Ringers, Lactated IV 07/21/21 03:57 150 mls/hr STAT STA Administration Sodium Chloride 10 ml 07/20/21 17:04 07/20/21 19:03 Sodium Chloride 0.9% 10 Ml Syringe FLUSH 10 ml ASDIRECTED PRN Administration Keep Vein Open Sodium Chloride 2.5 ml 07/20/21 17:04 07/20/21 19:03 Sodium Chloride 0.9% 2.5 Ml Syringe FLUSH 2.5 ml ASDIRECTED PRN Administration Keep Vein Open Vancomycin HCl 1 dose 07/20/21 20:04 Pharmacy To Dose - Vancomycin .XX 07/20/21 20:05 ONETIME ONE Discontinued Medications Generic Name Dose Route Start Last Admin Trade Name Freq PRN Reason Stop Dose Admin Albuterol 10 mg 07/20/21 20:00 07/20/21 20:59 Albuterol 0.5% 5 Mg/Ml Neb Soln 20 Ml Bottle NEB 07/20/21 20:01 10 mg ONETIME ONE Administration Albuterol 10 mg 07/20/21 21:47 07/20/21 22:05 Albuterol 0.5% 5 Mg/Ml Neb Soln 20 Ml Bottle NEB 07/20/21 21:48 10 mg ONETIME ONE Administration Calcium Gluconate 1 gm 07/20/21 20:00 07/20/21 20:16 Calcium Gluconate 10% 1 Gm/10 Ml Sdv IVPUSH 07/20/21 20:01 1 gm ONETIME ONE Administration Calcium Gluconate 1 gm 07/20/21 21:17 07/20/21 21:41 Calcium Gluconate 10% 1 Gm/10 Ml Sdv IV 07/20/21 21:18 1 gm ONETIME STA Administration Etomidate 20 mg 07/20/21 17:22 07/20/21 17:59 Etomidate 2 Mg/Ml 20 Ml Sdv IVPUSH 07/20/21 17:23 20 mg ONETIME ONE Administration Fentanyl 100 mcg 07/20/21 17:35 07/20/21 18:02 Fentanyl 50 Mcg/Ml Sdv IVPUSH 07/20/21 17:36 100 mcg ONETIME ONE Administration Fentanyl Confirm 07/20/21 17:35 07/20/21 17:47 Fentanyl 100 Mcg/2 Ml Sdv Administered 07/20/21 17:36 100 mcg Dose Administration 100 mcg .ROUTE .STK-MED ONE Fentanyl 100 mcg 07/20/21 17:49 07/20/21 18:14 Fentanyl 50 Mcg/Ml Sdv IVPUSH 07/20/21 17:50 Not Given ONETIME ONE Fentanyl Confirm 07/20/21 19:28 07/20/21 20:48 Fentanyl 100 Mcg/2 Ml Sdv Administered 07/20/21 19:29 Not Given Dose 100 mcg .ROUTE .STK-MED ONE Sodium Chloride 1,000 mls @ 999 mls/hr 07/20/21 17:04 07/20/21 17:46 Normal Saline IV 07/20/21 18:04 999 mls/hr STAT ONE Administration Propofol 100 mls @ 0 mls/hr 07/20/21 17:30 Diprivan 100 Ml IV TITRATE ARTUR Protocol 5 MCG/KG/MIN Propofol 100 mls @ 0 mls/hr 07/20/21 17:30 Diprivan 100 Ml IV TITRATE ARTUR Protocol 5 MCG/KG/MIN Propofol 100 mls @ 2.4 mls/hr 07/20/21 17:45 Diprivan 100 Ml IV TITRATE ARTUR Protocol 5 MCG/KG/MIN Sodium Chloride 1,000 mls @ 999 mls/hr 07/20/21 17:49 07/20/21 18:43 Normal Saline IV 07/20/21 18:49 999 mls/hr .Bolus ONE Administration Propofol Confirm 07/20/21 17:39 07/20/21 19:12 Diprivan 100 Ml Administered 07/20/21 17:40 Not Given Dose 100 mls @ as directed .ROUTE .STK-MED ONE Ceftriaxone Sodium 1 gm/ 50 mls @ 100 mls/hr 07/20/21 18:33 07/20/21 19:03 Sodium Chloride IV 07/20/21 19:02 100 mls/hr ONETIME ONE Administration Sodium Bicarbonate 150 meq/ 1,150 mls @ 200 mls/hr 07/20/21 18:37 Dextrose/Water IV 07/21/21 00:21 ONETIME ONE Fentanyl Citrate Confirm 07/20/21 19:35 07/20/21 21:01 Fentanyl 2500 Mcg In Ns 250 Ml (10 Mcg/Ml) Administered 07/20/21 19:36 Not Given Dose 250 mls @ as directed .ROUTE .STK-MED ONE Phytonadione 10 mg/ Sodium 51 mls @ 100 mls/hr 07/20/21 19:53 Chloride IV 07/20/21 20:23 NOW ONE Tranexamic Acid 1,000 mg/ 110 mls @ 660 mls/hr 07/20/21 19:56 Sodium Chloride IV 07/20/21 20:05 ONETIME ONE Cefepime HCl 2 gm/ Premix 50 mls @ 100 mls/hr 07/20/21 20:04 07/20/21 20:50 IV 07/20/21 20:33 100 mls/hr ONETIME ONE Administration Insulin Human Regular 10 unit 07/20/21 20:00 07/20/21 20:44 Insulin Regular, Human 100 Units/Ml 10 Ml Vial IVPUSH 07/20/21 20:01 0.1 ml ONETIME ONE Administration Protocol Insulin Human Regular 10 unit 07/20/21 21:55 07/20/21 21:57 Insulin Regular, Human 100 Units/Ml 10 Ml Vial IVPUSH 07/20/21 21:56 10 unit ONETIME ONE Administration Protocol Octreotide Acetate 50 mcg 07/20/21 18:35 Octreotide 50 Mcg/1 Ml Amp IV 07/20/21 18:36 ONETIME ONE Pantoprazole Sodium 80 mg 07/20/21 18:33 07/20/21 19:02 Pantoprazole 40 Mg/10 Ml Syringe IVPUSH 07/20/21 18:34 80 mg ONETIME ONE Administration Sodium Bicarbonate 50 meq 07/20/21 18:33 07/20/21 19:02 Sodium Bicarbonate 8.4% 50 Meq/50 Ml Syringe IVPUSH 07/20/21 18:34 50 meq ONETIME ONE Administration Sodium Polystyrene Sulfonate 45 gm 07/20/21 20:01 Sodium Polystyrene Sulfonate 15 Gm/60 Ml Susp 60 Ml Bot PO 07/20/21 20:02 NOW ONE Succinylcholine Chloride 100 mg 07/20/21 17:22 Succinylcholine Chloride 200 Mg/10 Ml Syr IV 07/20/21 17:23 ONETIME ONE Succinylcholine Chloride 100 mg 07/20/21 17:49 07/20/21 20:58 Succinylcholine 200 Mg/10 Ml Mdv IV 07/20/21 17:50 100 mg STAT STA Administration Departure - Departure Time of Disposition: 22:20 Condition: Critical Sepsis Event Note (ED) - Focused Exam Vital Signs: Vital Signs Temp Pulse Resp BP Pulse Ox 07/20/21 18:49 36.2 C 61 26 H 98/47 L 81 L - My Orders Last 24 Hours: My Active Orders 07/20/21 18:55 FRESH FROZEN PLASMA [BBK] Stat RED BLOOD CELLS LP [BBK] Stat 07/20/21 19:10 fentaNYL/Normal Saline [fentaNYL 2500 MCG in NS 250 ML (10 MCG/ML)] 2,500 mcg Premix Bag 1 bag IV TITRATE 07/20/21 19:12 Transfuse Red Blood Cells [COMM] Stat 07/20/21 19:15 Octreotide [SandoSTATIN] 500 mcg Sodium Chloride 0.9% [Normal Saline] 495 ml IV Q10H 07/20/21 19:53 Transfuse Fresh Frozen Plasma [COMM] Stat 07/20/21 19:57 Transfuse Red Blood Cells [COMM] Stat 07/20/21 20:00 Dextrose 50% in Water 50 ml IV ASDIRECTED PRN Norepinephrine Bit/0.9 % NaCl [Norepinephr-0.9% NaCl 4 mg/250] 4 mg in 250 ml IV TITRATE 07/20/21 20:01 RT Aerosol Therapy [RC] ASDIRECTED Dextrose 50% in Water 50 ml IVPUSH ASDIRECTED PRN Glucagon,Human Recombinant [GlucaGen] 1 mg IM ASDIRECTED PRN 07/20/21 20:04 Pharmacy to Dose - Vancomycin 1 dose .XX ONETIME ONE 07/20/21 21:00 VANCOmycin 2 GM/400 ML 2 gm Premix Bag 1 bag IV STAT 07/20/21 21:18 Lactated Ringers [Ringers, Lactated] 1,000 ml IV STAT 07/20/21 21:47 RT Aerosol Therapy [RC] ASDIRECTED 07/20/21 21:55 Dextrose 50% in Water 50 ml IVPUSH ASDIRECTED PRN Glucagon,Human Recombinant [GlucaGen] 1 mg IM ASDIRECTED PRN 07/21/21 21:00 VANCOMYCIN TROUGH [CHEM] Timed - Assessment/Plan Last 24 Hours: My Active Orders 07/20/21 18:55 FRESH FROZEN PLASMA [BBK] Stat RED BLOOD CELLS LP [BBK] Stat 07/20/21 19:10 fentaNYL/Normal Saline [fentaNYL 2500 MCG in NS 250 ML (10 MCG/ML)] 2,500 mcg Premix Bag 1 bag IV TITRATE 07/20/21 19:12 Transfuse Red Blood Cells [COMM] Stat 07/20/21 19:15 Octreotide [SandoSTATIN] 500 mcg Sodium Chloride 0.9% [Normal Saline] 495 ml IV Q10H 07/20/21 19:53 Transfuse Fresh Frozen Plasma [COMM] Stat 07/20/21 19:57 Transfuse Red Blood Cells [COMM] Stat 07/20/21 20:00 Dextrose 50% in Water 50 ml IV ASDIRECTED PRN Norepinephrine Bit/0.9 % NaCl [Norepinephr-0.9% NaCl 4 mg/250] 4 mg in 250 ml IV TITRATE 07/20/21 20:01 RT Aerosol Therapy [RC] ASDIRECTED Dextrose 50% in Water 50 ml IVPUSH ASDIRECTED PRN Glucagon,Human Recombinant [GlucaGen] 1 mg IM ASDIRECTED PRN 07/20/21 20:04 Pharmacy to Dose - Vancomycin 1 dose .XX ONETIME ONE 07/20/21 21:00 VANCOmycin 2 GM/400 ML 2 gm Premix Bag 1 bag IV STAT 07/20/21 21:18 Lactated Ringers [Ringers, Lactated] 1,000 ml IV STAT 07/20/21 21:47 RT Aerosol Therapy [RC] ASDIRECTED 07/20/21 21:55 Dextrose 50% in Water 50 ml IVPUSH ASDIRECTED PRN Glucagon,Human Recombinant [GlucaGen] 1 mg IM ASDIRECTED PRN 07/21/21 21:00 VANCOMYCIN TROUGH [CHEM] Timed
--- NOTE | 2021-07-20 18:03 | CR ---
INDICATION: Post intubation. TECHNIQUE: Portable AP chest. COMPARISON: None. FINDINGS: The endotracheal tube tip is at the level of the thoracic inlet and located about 6 cm above the kvng. There are areas of atelectasis and consolidation in the right middle in the mid and lower right lung. Small benign calcified granuloma in the left lung. Heart and pulmonary vascularity appear normal. No pneumothorax. Dictated by Ivan Rodríguez MD @ 07/20/2021 6:02:51 PM (Electronically Signed)
[2021-07-20] MEDS: Octreotide 50 MCG/1 ML Amp IV ONE ×2 (18:26→18:35)
--- NOTE | 2021-07-20 18:26 | CR ---
INDICATION: OG tube placement. TECHNIQUE: Single view of the upper abdomen and lower chest. FINDINGS: OG tube is in the stomach. Dictated by Ivan Rodríguez MD @ 07/20/2021 6:26:03 PM (Electronically Signed)
[2021-07-20] MEDS ORDERED: Pantoprazole 40 MG/10 ML Syringe IVPUSH ONE (18:33)
[2021-07-20] MEDS ORDERED: cefTRIAXone 1 GM in Sodium Chloride 0.9% 50 ML IV ONE (18:33)
[2021-07-20] MEDS ORDERED: Sodium Bicarbonate 8.4% 50 MEQ/50 ML Syringe IVPUSH ONE (18:33)
[2021-07-20] MEDS ORDERED: Sodium Bicarbonate 150 MEQ in Dextrose 5% in Water 1,000 ML IV ONE ×4 (18:37→19:30)
[2021-07-20 19:02] LABS: CORONAVIRUS COVID-19 NAA NEGATIVE (NEGATIVE); INFLUENZA A NAA NEGATIVE (NEGATIVE); INFLUENZA B NAA NEGATIVE (NEGATIVE)
[2021-07-20] MEDS ORDERED: fentaNYL/Normal Saline 2,500 MCG in Premix Bag 1 BAG IV PRN (19:10)
[2021-07-20] MEDS ORDERED: Octreotide 500 MCG in Sodium Chloride 0.9% 495 ML IV SCH (19:15)
[2021-07-20] MEDS ORDERED: fentaNYL/Normal Saline 250 ML ONE (19:35)
[2021-07-20] MEDS ORDERED: Phytonadione 10 MG in Sodium Chloride 0.9% 50 ML IV ONE (19:53)
[2021-07-20 19:55] LABS: ACETAMINOPHEN <2.0 ug/mL; CARBON DIOXIDE,CO2 6.4 mmol/L (21.0-32.0); CHLORIDE,CL 96 mmol/L (98-107); GLUCOSE RANDOM 137 mg/dL (74-106); SODIUM,NA 130 mmol/L (136-148)
[2021-07-20] MEDS ORDERED: Tranexamic Acid 1,000 MG in Sodium Chloride 0.9% 100 ML IV ONE (19:56)
[2021-07-20 19:59] LABS: BLOOD UREA NITROGEN,BUN 151 mg/dL (7.0-18.0); POTASSIUM,K 7.7 mmol/L (3.5-5.1)
[2021-07-20] MEDS ORDERED: Albuterol 0.5% 5 MG/ML Neb Soln 20 ML Bottle NEB ONE ×2 (20:00→21:47)
[2021-07-20] MEDS ORDERED: Calcium Gluconate 10% 1 GM/10 ML SDV IVPUSH ONE (20:00)
[2021-07-20] MEDS ORDERED: Insulin Regular, Human 100 Units/ML 10 ML Vial IVPUSH ONE ×2 (20:00→21:55)
[2021-07-20] MEDS ORDERED: 50% Dextrose in Water 50 ML Syringe IV PRN (20:00)
[2021-07-20] MEDS ORDERED: 50% Dextrose in Water 50 ML Syringe IVPUSH PRN ×2 (20:01→21:55)
[2021-07-20] MEDS ORDERED: Glucagon,Human Recombinant 1 MG Vial IM PRN ×2 (20:01→21:55)
[2021-07-20] MEDS ORDERED: Sodium Polystyrene Sulfonate 15 GM/60 ML Susp 60 ML Bot PO ONE (20:01)
[2021-07-20] MEDS ORDERED: Cefepime 2 GM in Premix Bag 1 BAG IV ONE (20:04)
[2021-07-20] MEDS ORDERED: VANCOmycin 2 GM/400 ML 2 GM in Premix Bag 1 BAG IV ONE (21:00)
[2021-07-20] MEDS ORDERED: Calcium Gluconate 10% 1 GM/10 ML SDV IV STA (21:17)
[2021-07-20] MEDS ORDERED: Lactated Ringers 1,000 ML IV STA (21:18)
--- NOTE | 2021-07-20 22:31 | CR ---
INDICATION: Flight crew wanted intubation checked TECHNIQUE: Chest radiograph 1 view COMPARISON: 07/20/2021 FINDINGS: Mediastinum: The mediastinum is normal in appearance. The heart silhouette is normal in size and morphology. The endotracheal tube tip is positioned 6.8 cm from the kvng. NG tube is present with the tip in the gastric fundus. Lung: Consolidation in the right lower lung zone and small right pleural effusion is present without significant change. No pneumothorax is identified. Bone and Soft tissue: Unremarkable for age. IMPRESSION: 1. There has been no significant interval changes. Dictated by Zac Koch MD @ 07/20/2021 10:30:58 PM Dictated by: Zac Koch MD @ 07/20/2021 22:31:01 (Electronically Signed)
[2021-07-21] MEDS: Octreotide 50 MCG/1 ML Amp IV ONE (05:26)
[2021-07-21 06:47] VITALS: BP 117/78; PULSE 81
--- NOTE | 2021-07-21 20:34 | PCM.EKG ---
#1 Interpretation EKG Date: 07/20/21 Time: 19:59 Rhythm: Other (Junctional Rhythm) Rate (Beats/Min): 57 [place]: Normal P-Wave: Variable QRS: Wide ST-T: Normal QT: Prolonged Comparison: Change From Previous EKG (11/06/16) EKG Interpretation Comments: Junctional Rhythm with wide QRS and prolong QT. #2 Interpretation EKG Date: 07/20/21 Time: 21:36 Rhythm: NSR Rate (Beats/Min): 85 [place]: Normal P-Wave: Present QRS: Wide ST-T: Normal QT: Prolonged Comparison: Change From Previous EKG (Today) EKG Interpretation Comments: Sinus Rhythm with Wide QRS and prolong QT
== END 2021-07-20 22:44 ==
LOC: MW.ED 16:56
DX: K92.2 Gastrointestinal hemorrhage, unspecified (principal); R57.9 Shock, unspecified; N19 Unspecified kidney failure; E87.2 Acidosis; R79.89 Other specified abnormal findings of blood chemistry; Z20.822 Contact with and (suspected) exposure to COVID-19
CPT/HCPCS: 0240U; 31500; 36415; 36430; 36556; 36600; 71045; 80053; 80143; 80179; 80305; 80307; 81001; 82803; 82947; 83605; 83735; 84132; 84443; 84484; 85014; 85018; 85025; 85610; 85730; 86850; 86900; 86901; 86920; 87040; 93005; 96365; 96366; 96367; 96368; 96375; 96376; 99291; 99292; C9113; J0330; J0610; J0692; J0696; J2354; J2704; J3010; J3490; J7030; J7040; J7060; J7120; P9016; P9017; 86921; 86922; J1815-GY